=== PATIENT | female | born 1955 | race Caucasian/White ===

== ENCOUNTER → 2019-10-20 09:06 | Outpatient (CLI) | payer BC, SELFPAY ==
--- NOTE | ~2019-10-20 | XR_ITS ---
XR knee RT 3V 10/20/2019 09:24 INDICATION: Knee pain PROCEDURE: 3 views right knee COMPARISON: No prior studies for comparison. FINDINGS: Fracture, dislocation or subluxation is not identified. No significant joint effusion. The soft tissues appear within normal limits. No foreign bodies are identified. IMPRESSION: 1: NO ACUTE BONE OR JOINT ABNORMALITY IDENTIFIED. Reviewed, dictated and finalized at location A.
== END ==
PROVIDERS: Visit Provider Nurse Practitioner Family
DX: M25.561 Pain in right knee (principal)
CPT/HCPCS: 73562